=== PATIENT | male | born 1980 | race Hispanic/Latino ===

== ENCOUNTER 2018-06-16 16:57 | Emergency (ER) | payer SELFPAY ==
[2018-06-16] MEDS ORDERED: FENTANYL CITR 100 MCG/2 ML ONE (17:52)
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
== END 2018-06-16 20:15 | disposition home or self-care (01) ==
LOC: ER 16:57
DX: R07.9 Chest pain, unspecified (principal); E11.9 Type 2 diabetes mellitus without complications; V49.40XA Driver injured in collision with unspecified motor vehicles in traffic accident, initial encounter
CPT/HCPCS: 70450; 71260; 72125; 74177; 96374; 99284; J3010; Q9967